=== PATIENT | female | born 1960 ===

== ENCOUNTER 2021-01-01 10:58 | Inpatient (IN) | payer OTHER ==
[~2021-01-01] VITALS: Ht 172.7 cm; Wt 77.6 kg
[2021-01-01] MEDS ORDERED: GLUMETZA1000 MG PO (14:10)
[2021-01-01] MEDS ORDERED: GLIMEPIRIDE2 M1 PO (14:11)
[2021-01-01] MEDS ORDERED: COZAAR100 MG PO (14:12)
[2021-01-01] MEDS ORDERED: AMLODI PO (14:12)
[2021-01-01] MEDS ORDERED: ATORVASTATIN CA40 MG PO (14:12)
[2021-01-01] MEDS ORDERED: FUSION PLUS CA1 EACH PO (14:13)
[2021-01-03] MEDS ORDERED: AMLODIPINE BESY10 MG PO (11:36)
== END 2021-01-05 09:59 | disposition home or self-care (01) | DRG 740 ==
LOC: O/R 01-03 05:20 → OB/GYN 01-03 05:20 → SURH 01-03 07:00 → OB/GYN 01-03 15:27
PROVIDERS: ADMIT Obstetrics & Gynecology Gynecologic Oncology; ATTEND Obstetrics & Gynecology Gynecologic Oncology
PROC: 0UT20ZZ Resection of Bilateral Ovaries, Open Approach (ICD-10-PCS; 2021-01-03)
PROC: 0UT70ZZ Resection of Bilateral Fallopian Tubes, Open Approach (ICD-10-PCS; 2021-01-03)
PROC: 0DBU0ZZ Excision of Omentum, Open Approach (ICD-10-PCS; 2021-01-03)
PROC: 07BC0ZZ Excision of Pelvis Lymphatic, Open Approach (ICD-10-PCS; 2021-01-03)
PROC: 0UT90ZZ Resection of Uterus, Open Approach (ICD-10-PCS; principal; 2021-01-03 07:00)
DX: C54.1 Malignant neoplasm of endometrium (principal); C56.1 Malignant neoplasm of right ovary; R59.0 Localized enlarged lymph nodes; D20.1 Benign neoplasm of soft tissue of peritoneum; N83.8 Other noninflammatory disorders of ovary, fallopian tube and broad ligament